=== PATIENT | male | born 1970 | race Caucasian/White ===

== ENCOUNTER → 2016-05-23 | Outpatient (CLI) | payer BC ==
[~2016-05-23] MED LIST: ACP20 PO; ATOR-54 PO; CHOL1TAB42 PO; CLB/200 PO; FLUO0.1S2 OPB; OMEGCAP2 PO; TRMCR130WC TOP; [UNRECOGNIZED DRUG - CODE] PO
[2016-05-23 09:56] LABS: ALB/GLOB RATIO 1.1 (0.9-2); ALKALINE PHOSPHATASE 45 U/L (45-117); ALT/SGPT 63 U/L (12-78); AST/SGOT 31 U/L (15-37); BLOOD UREA NITROGEN 27 mg/dl (7-18); BUN/CREATININE RATIO 22.8 (10-20); CALCIUM 9.9 mg/dl (8.5-10.1); CARBON DIOXIDE 28 mmol/L (21-32); CHLORIDE 106 mmol/L (98-107); GLUCOSE 104 mg/dl (70-99); POTASSIUM 4.6 mmol/L (3.5-5.1); SODIUM 142 mmol/L (136-145)
[2016-05-23 10:01] LABS: ESTIMATED AVERAGE GLUCOSE 126 mg/dl; HA1C FLAG Normal (Normal)
== END | disposition home or self-care (01) ==
LOC: C.LAB1850 08:14
PROVIDERS: ATTEND Family Medicine
DX: E78.00 Pure hypercholesterolemia, unspecified (principal); R73.03 Prediabetes; R63.5 Abnormal weight gain; E55.9 Vitamin D deficiency, unspecified

== ENCOUNTER → 2017-07-24 | Outpatient (CLI) | payer BC ==
[2017-07-24 10:04] LABS: ALBUMIN 4.1 gm/dl (3.4-5.0); ALT/SGPT 55 U/L (12-78); AST/SGOT 31 U/L (15-37); BLOOD UREA NITROGEN 20 mg/dl (7-18); CALCIUM 9.2 mg/dl (8.5-10.1); CARBON DIOXIDE 28 mmol/L (21-32); CHOLESTEROL 193 mg/dl (0-200); CREATININE 1.39 mg/dl (0.60-1.40); GLUCOSE 100 mg/dl (70-99); HEMOGLOBIN A1C 5.7 % (4.5-5.6); POTASSIUM 4.1 mmol/L (3.5-5.1); SODIUM 137 mmol/L (136-145)
[2017-07-24 10:15] LABS: ALKALINE PHOSPHATASE 42 U/L (45-117); LDL CHOLESTEROL CALCULATED 110 mg/dl
== END | disposition home or self-care (01) ==
LOC: C.LAB1850 07:21
PROVIDERS: ATTEND Internal Medicine Geriatric Medicine
DX: R73.03 Prediabetes (principal); Z00.00 Encounter for general adult medical examination without abnormal findings; M19.90 Unspecified osteoarthritis, unspecified site; E78.5 Hyperlipidemia, unspecified